=== PATIENT | female | born 1950 | race Caucasian/White ===

== ENCOUNTER 2018-12-13 14:44 | Inpatient (IN) ==
[2018-12-13] MEDS ORDERED: NS 1,000 ML IV ONE ×2 (15:02→17:00)
--- NOTE | 2018-12-13 15:28 | Diag Imaging Result Doc PS360 ---
CT HEAD W/O CONTRAST - 12/13/2018 INDICATION: FALL COMPARISON: 03/15/2014 FINDINGS: The ventricles and sulci are normal in size and contour. There is stable moderately advanced cerebral periventricular white matter chronic microvascular disease. No intracranial mass or hemorrhage. The skull is intact. The sinuses, mastoids, and middle ears are clear. IMPRESSION: No acute disease or change from prior. This exam was performed using automated exposure control, adjustment of mA or kV according to patient size, and/or use of iterative reconstruction technique Electronically signed by Adolfo Morin 12/13/2018 3:26 PM
[2018-12-13 15:57] LABS: BILIRUBIN URINE NEGATIVE (NEGATIVE); BLOOD URINE NEGATIVE (NEGATIVE); CLARITY CLEAR (CLEAR); COLOR YELLOW; GLUCOSE URINE NEGATIVE (NEGATIVE); KETONE URINE NEGATIVE (NEGATIVE); LEUKOCYTES URINE TRACE (NEGATIVE); NITRITE URINE NEGATIVE (NEGATIVE); PH URINE 6.5; PROTEIN URINE 1+(30 mg/dL) mg/dL (NEGATIVE); UROBILINOGEN URINE NORMAL
--- NOTE | 2018-12-13 15:59 | Diag Imaging Result Doc PS360 ---
EXAM: CHEST-1 VIEW - 12/13/2018 HISTORY: SOB TECHNIQUE: Portable chest COMPARISON: 07/14/2017 FINDINGS: Heart size is normal. There is mild tortuosity of the thoracic aorta. Inspiration is mildly shallow. There is mild prominence of central vascular markings. There is no focal consolidation, pleural effusion, or pneumothorax identified. IMPRESSION: Mildly shallow inspiration. Mild prominence of central vascular markings. No discrete pneumonia. No pneumothorax. Electronically signed by Schuyler Oliver 12/13/2018 3:56 PM
[2018-12-13 16:08] LABS: URINE BACTERIA NEGATIVE /HFP; URINE EPITHELIAL CELLS <10 /HPF (<10); URINE RBC <10 /HPF (<10); URINE SOURCE CLEAN CATCH; URINE WBC <10 /HPF (<10)
[2018-12-13 16:13] LABS: ESTIMATED GFR > 60
[2018-12-13 16:18] LABS: AGAP 10; ALBUMIN 3.8 g/dL (3.5-5.0); ALKALINE PHOSPHATASE 221 U/L (32-104); BUN 21 mg/dL (8-22); CALCIUM 8.6 mg/dL (8.8-10.2); CHLORIDE 88 mmol/L (98-107); CK PROFILE 44 U/L (24-173); COSMO 274; CREATININE 0.9 mg/dL (0.5-0.9); GLUCOSE 117 mg/dL (70-104); GOT 14 U/L (10-30); GPT 7 U/L (10-36); POTASSIUM 4.5 mmol/L (3.5-5.1); SODIUM 135 mmol/L (136-145); TCO2 37 mmol/L (25-35); TOTAL PROTEIN 6.8 g/dL (6.3-8.3)
[2018-12-13 16:25] LABS: BASO# 0.03 X1000 (0.0-0.2); BASO% 0.2 % (0.0-0.8); EOS% 0.8 % (0.0-10.0); HEMATOCRIT 42.6 % (37.0-47.0); HEMOGLOBIN 12.3 g/dL (12.0-16.0); IMM GRAN# 0.09 X1000 (0.0-0.04); IMM GRAN% 0.7 % (0.0-0.5); LYMPH# 1.13 X1000 (1.2-3.4); LYMPH% 9.1 % (20.5-51.1); MCH 24.4 PG (27-31); MCHC 28.9 g/dL (33-37); MCV 84.4 FL (81-99); MONO# 0.88 X1000 (0.11-0.59); MONO% 7.1 % (1.7-9.3); MPV 9.3 FL (7.4-10.4); NEUT# 10.21 X1000 (1.4-6.5); NEUT% 82.1 % (42.2-75.2); PLT 387 X1000 (130-400); RBC 5.05 XMIL (4.2-5.4); WBC 12.44 X1000 (4.8-10.8)
--- NOTE | 2018-12-13 16:43 | PROVIDER DOCUMENTATION ---
This chart was entered by Maia Ivory Scribe, acting as scribe for Oziel Cid MD. HPI-Head Injury - General Chief Complaint: Fall Stated Complaint: fall, slurred speech Time Seen by Provider: 12/13/18 14:47 Source: patient, family (son), EMS ([facility]) Unable to obtain history due to:: altered Allergies/Adverse Reactions: Patient Allergies Allergy/AdvReac Type Severity Reaction Status Date / Time acetaminophen AdvReac Unknown Verified 03/15/14 19:33 [From Tylenol-Codeine #3] codeine AdvReac Unknown Verified 03/15/14 19:33 codeine phosphate * AdvReac Unknown Verified 03/15/14 19:33 [From Tylenol-Codeine #3] dimethicone * AdvReac Unknown Verified 03/15/14 19:33 [From A & D Emollient] glycerin * AdvReac Unknown Verified 03/15/14 19:33 [From A & D Emollient] Penicillins AdvReac Unknown Verified 03/15/14 19:33 stearyl alcohol * AdvReac Unknown Verified 03/15/14 19:33 [From A & D Emollient] Sulfa (Sulfonamide AdvReac Unknown Verified 03/15/14 19:33 Antibiotics) Home Medications: Home Medication List Medication Instructions Recorded Confirmed Last Taken Type Aspirin [Aspirin EC] 81 mg PO DAILY #30 tablet. 03/15/14 Unknown Rx Atenolol 25 mg PO DAILY 03/15/14 03/15/14 03/15/14 History Atorvastatin Calcium [Lipitor] 10 mg PO DAILY 03/15/14 03/15/14 03/14/14 History Fluoxetine [Prozac] 10 mg PO DAILY 03/15/14 03/15/14 03/15/14 History LISINOpril [Prinivil] 5 mg PO DAILY 03/15/14 03/15/14 03/15/14 History Lisinopril 10 mg PO DAILY #30 tablet 03/15/14 Unknown Rx Lorazepam [Ativan] 0.5 mg PO QHS 03/15/14 03/15/14 03/14/14 History - History of Present Illness-Head Injury Nature of Presenting Problem: 68 yowf presents to the ed via ems with c/o frequent falls AMS and slurred spee ch since monday. son sts pt has fallen several times and has not been at baseline since first fall on monday. he sts today pt became worse with slurred speech worsening confusion and lethargic. pt on exam can be woke by voice but is lethargic and quickly goes back to sleep. pt has no obvious injury on exam Head Injury Location: reports: other (sts has fallen and hit head but no wound is seen) Quality of Pain: reports: none Severity: reports: moderate Onset/Duration: reports: 4 days ago Timing: reports: still present, intermittent, getting worse Method of Injury: reports: fell Any recent trauma/injury?: reports: minor, to head Loss of Consciousness: unsure Modifying Factors: improves with: nothing Injury Associated Symptoms: reports: trouble walking. denies: back/neck pain, chest pain, headaches, nausea, shortness of breath, snap/crack/pop sensation Locality of Occurance: Home Similar Symptoms Previously?: Yes Recently seen or treated by another doctor?: No Review of Systems - Adult - REVIEW OF SYSTEMS - ADULT Constitutional: denies: chills, fever Eyes: reports: no symptoms reported Ears, Nose, Mouth & Throat: reports: no symptoms reported Cardiovascular: denies: chest pain, palpitations, syncope Respiratory: denies: cough, shortness of breath, wheezing Gastrointestinal: denies: abdominal pain, diarrhea, nausea, vomiting Genitourinary: reports: no symptoms reported Musculoskeletal: denies: back pain, neck pain Integumentary: reports: no symptoms reported Neurological: reports: see HPI, loss of balance, slurred speech, other (frequent falls and ams). denies: ataxia, headache/migraines, seizure Psychiatric: reports: no symptoms reported Endocrine: reports: no symptoms reported Hematologic/Lymphatic: reports: no symptoms reported Allergic/Immunologic: reports: no symptoms reported All Other Systems: Reviewed and Negative Past History - Adult - PAST MEDICAL HISTORY-ADULT Review of Records: reports: Nursing Assessment Review, Medications Reviewed Major Childhood Illnesses: reports: denies history Cardiovascular: reports: HTN, hyperlipidemia Respiratory: reports: denies history Gastrointestinal: reports: denies history Obstetrical/Gynecological: reports: denies history Genitourinary: reports: denies history Musculoskeletal: reports: denies history Hand Dominance: Right Handed 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 denies: CVA Psychiatric: reports: depression Endocrine/Immune: reports: denies history Other Conditions: reports: denies history - PRIOR SURGERIES/PROCEDURES Surgical/Procedure History: reports: cholecystectomy, BTL - IMMUNIZATION STATUS Childhood Immunizations: See Nurse Assessment Flu Vaccine: See Nurse Assessment - FAMILY HISTORY Family History: reviewed, not pertinent - SOCIAL HISTORY Smoking: quit greater than 1 year Substance Use: denies Alcohol Use Frequency: never Living Situation: family (son lives with pt) Physical Exam- Neurological - Physical Exam-Neuro Initial Vital Signs Reviewed: Yes General Appearance: obese, lethargic, slow to respond Eye Exam: bilateral eye: normal inspection, PERRL, EOMI HENMT: moist mucous membranes, normal ENT inspection Head Injury: no evidence of injury (son sts pt has fell monday and again today putting a whole in the wall with fall) Neck: supple, normal inspection Respiratory: lungs clear, normal breath sounds Cardiovascular: normal peripheral pulses, regular rate, rhythm Abdominal Exam: normal bowel sounds, soft Lymphatic: no adenopathy 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 negative: normal speech, facial droop, facial weakness Neurologic: negative: aphasia, facial droop Integumentary: normal color, normal turgor, warm/dry - Glascow Coma Scale Best Eye Response: (3) open to voice Best Verbal Response: (1) no verbal response Best Motor Response: (6) obeys commands Total Glascow Score: 10 Progress - PLAN OF CARE/RESULTS Progress/Plan/Lab Results: Vital Signs - 8 hr 12/13/18 15:05 12/13/18 15:12 12/13/18 15:35 Temperature 98.2 F Pulse Rate 89 83 Respiratory Rate 20 18 Blood Pressure 177/103 178/96 O2 Sat by Pulse Oximetry 100 98 12/13/18 15:54 Temperature Pulse Rate 82 Respiratory Rate 18 Blood Pressure 141/84 O2 Sat by Pulse Oximetry 95 Laboratory Results - last 24 hr 12/13/18 12/13/18 12/13/18 15:24 15:25 15:25 WBC 12.44 H RBC 5.05 Hgb 12.3 Hct 42.6 MCV 84.4 MCH 24.4 L MCHC 28.9 L RDW Std Deviation 16.0 H Plt Count 387 MPV 9.3 Immature Gran % (Auto) 0.7 H Neut % (Auto) 82.1 H Lymph % (Auto) 9.1 L Harney % (Auto) 7.1 Eos % (Auto) 0.8 Baso % (Auto) 0.2 Immature Gran # (Auto) 0.09 H Neut # (Auto) 10.21 H Lymph # (Auto) 1.13 L Harney # (Auto) 0.88 H Eos # (Auto) 0.10 Baso # (Auto) 0.03 Sodium 135 L Potassium 4.5 Chloride 88 L Carbon Dioxide 37 H Anion Gap 10 BUN 21 Creatinine 0.9 Estimated GFR/1.73 m2 > 60 BUN/Creatinine Ratio 23 Glucose 117 H Calculated Osmolality 274 Calcium 8.6 L Total Bilirubin 0.70 AST 14 ALT 7 L Alkaline Phosphatase 221 H Creatine Kinase 44 Troponin T [id number] Pept Total Protein 6.8 Albumin 3.8 Globulin 3.0 Albumin/Globulin Ratio 1.0 Urine Source CLEAN CATCH Urine Color YELLOW Urine Clarity CLEAR Urine pH 6.5 Ur Specific [place] 1.020 Urine Protein 1+(30 mg/dL) A Urine Ketones NEGATIVE Urine Blood NEGATIVE Urine Nitrite NEGATIVE Urine Bilirubin NEGATIVE Urine Urobilinogen NORMAL Urine Microscopic RBC <10 Urine WBC TRACE A Urine Microscopic WBC <10 Ur Epithelial Cells <10 Urine Bacteria NEGATIVE Urine Glucose NEGATIVE 12/13/18 12/13/18 15:25 15:25 WBC RBC Hgb Hct MCV MCH MCHC RDW Std Deviation Plt Count MPV Immature Gran % (Auto) Neut % (Auto) Lymph % (Auto) Harney % (Auto) Eos % (Auto) Baso % (Auto) Immature Gran # (Auto) Neut # (Auto) Lymph # (Auto) Harney # (Auto) Eos # (Auto) Baso # (Auto) Sodium Potassium Chloride Carbon Dioxide Anion Gap BUN Creatinine Estimated GFR/1.73 m2 BUN/Creatinine Ratio Glucose Calculated Osmolality Calcium Total Bilirubin AST ALT Alkaline Phosphatase Creatine Kinase Troponin T < 0.010 [id number]-[id number] Pept 8530 H Total Protein Albumin Globulin Albumin/Globulin Ratio Urine Source Urine Color Urine Clarity Urine pH Ur Specific [place] Urine Protein Urine Ketones Urine Blood Urine Nitrite Urine Bilirubin Urine Urobilinogen Urine Microscopic RBC Urine WBC Urine Microscopic WBC Ur Epithelial Cells Urine Bacteria Urine Glucose Orders Category Date Time Status Cardiac Monitoring DIRECTED Care 12/13/18 15:03 Active Oxygen Therapy- ED Nursing DIRECTED Care 12/13/18 15:03 Active Saline Loc NOW Care 12/13/18 15:03 Active CHEST-1 VIEW [RAD] Stat Exams 12/13/18 15:[address] HEAD W/O CONTRAST [CT] Stat Exams 12/13/18 14:38 Completed CBC WITH ELECTRONIC DIFF [HEME] Stat Lab 12/13/18 15:25 Completed CK PROFILE [SP CHEM] Stat Lab 12/13/18 15:25 Completed COMPREHENSIVE METABOLIC PANEL [CHEM] Stat Lab 12/13/18 15:25 Completed PRO B-NATRIURETIC PEPTIDE Stat Lab 12/13/18 15:25 Completed PROTIME WITH INR [COAG] Stat Lab 12/13/18 15:25 Received PTT [COAG] Stat Lab 12/13/18 15:25 Received TROPONIN T Stat Lab 12/13/18 15:[address] W/POSS RFLX CULT [URINALYSIS] Stat Lab 12/13/18 15:24 Completed URINE CULTURE [RM] Routine Lab 12/13/18 16:08 Ordered 0.9% Sodium Chloride Inj [Ns] 1,000 ml Med 12/13/18 15:02 Active IV 100 mls/hr CP/SOB/Palp >45 yrs of Age Stat Oth 12/13/18 15:02 Ordered EKG [EKG] Stat Ther 12/13/18 15:03 Ordered Result Diagrams: 12/13/18 15:25 12/13/18 15:25 - REASSESSMENT Reassessment #1 Time Reassessed: 16:24 (son is at bedside) Status: improving Reassessment #2 Time Reassessed: 16:43 Status: unchanged (REMAINS DROWSY BUT AROUSABLE. NO FOCAL DEFICITS. DISCUSSED WITH HOSPITALIST WILL ADMIT) - EKG 1 Time of EKG reading by physician:: 16:20 EKG Read and Signed by:: Oziel Cid EKG Interpretation (*Must complete 3 of following elements*): Normal Rate: 76 Rhythm: nsr [place]: normal QRS: other (right atrial enlargement) AK Interval: normal ST Wave: normal - XRAY 1 XRAY: Bilateral XRAY Study: Chest Impression: See EMR Report (EXAM: CHEST-1 VIEW - 12/13/2018 HISTORY: SOB TECHNIQUE: Portable chest COMPARISON: 07/14/2017 FINDINGS: Heart size is normal. There is mild tortuosity of the thoracic aorta. Inspiration is mildly shallow. There is mild prominence of central vascular markings. There is no focal consolidation, pleural effusion, or pneumothorax identified. IMPRESSION: Mildly shallow inspiration. Mild prominence of central vascular markings. No discrete pneumonia. No pneumothorax. Electronically signed by Schuyler Oliver 12/13/2018 3:56 PM 12/13/18 1556 Interpreting Physician: Schuyler Oliver MD Dictated Date/Time: 12/13/18 1554 cc: Oziel Cid MD; None,PCP) - CT/MRI 1 CT Study: Head Impression: See EMR Report (CT HEAD W/O CONTRAST - 12/13/2018 INDICATION: FALL COMPARISON: 03/15/2014 FINDINGS: The ventricles and sulci are normal in size and contour. There is stable moderately advanced cerebral periventricular white matter chronic microvascular disease. No intracranial mass or hemorrhage. The skull is intact. The sinuses, mastoids, and middle ears are clear. IMPRESSION: No acute disease or change from prior. This exam was performed using automated exposure control, adjustment of mA or kV according to patient size, and/or use of iterative reconstruction technique Electronically signed by Adolfo Morin 12/13/2018 3:26 PM 12/13/18 1526 Interpreting Physician: Adolfo Morin MD Dictated Date/Time: 12/13/18 1525 cc: Oziel Cid MD;) - CONSULTS/PCP/HOSPITALIST Notification #1 *Consult/PCP/Hospitalist*: hospiatlist Time Discussed: 16:40 Consult Disposition: Admit Departure - Departure Date of Disposition Decision: 12/13/18 Time of Disposition Decision: 16:42 DIAGNOSIS: Altered mental status, Closed head injury Disposition: ADMITTED INPATIENT 09 Certified Medical Emergency: Emergent Condition: Fair Referrals and Follow-Ups: None,PCP [Primary Care Provider] - - Critical Care Note This patient required my direct & personal management of CC.: No Attestation - Physician/ SADIA Attestation Patient care was provided by Advanced Practice Provider:: No The physician spent face to face time with patient:: Yes Advanced Practice Provider documentation review:: Supervising physician onsite and consulted in the evaluation and care of this patient. The physician did have a face to face encounter with the patient. This chart was documented by the indicated scribe, (Maia Ivory Scribe) and accurately reflects the services I performed and decisions made by me, Oziel Cid MD, as attested by the provider's signature.
[2018-12-13 16:53] LABS: INR 0.9; PROTIME 12.6 Seconds (11.0-16.0)
[2018-12-13 16:54] LABS: PTT 37.4 Seconds (22.3-41.8)
--- NOTE | 2018-12-13 17:52 | EKG Report ---
Test Performed on : 12/13/2018 4:20:40 PM Test Reason : FALL WEAK Blood Pressure : / mmHG Vent. Rate : 076 BPM Atrial Rate : 076 BPM P-R Int : 164 ms QRS Dur : 068 ms QT Int : 372 ms P-R-T Axes : 072 026 041 degrees QTc Int : 418 ms Normal sinus rhythm. Right atrial enlargement Borderline ECG When compared with ECG of 15-MAR-2014 19:30, No significant change was found Unconfirmed Result
[2018-12-13] MEDS ORDERED: ZOFRAN IV PRN (18:28)
[2018-12-13] MEDS: LOVENOX SUBQ SCH (19:35)
--- NOTE | 2018-12-13 19:36 | HISTORY AND PHYSICAL ---
PRIMARY CARE PHYSICIAN: A walk-in clinic in [place], [place]. CHIEF COMPLAINT: Fall, slurred speech, altered mental status that began on Monday and has progressively worsened. HISTORY OF PRESENTING ILLNESS: This is a 68-year-old female who presents to [facility] ER via EMS. Son is present at the bedside. Patient is lethargic, responding only momentarily to a sternal rub with a grimace, but otherwise nonverbal. Son states that his mom had a fall on Monday and he noticed some slurred speech and confusion, and that she has not been at her baseline since the fall on Monday. States today she became worse and had another fall, and had more slurred speech and worsening confusion and lethargy. Her workup in the emergency room showed a head CT with no acute disease or change from prior. Laboratory data showed a white blood cell count of 12.44. A proBNP was 8530. She will be admitted to the medical unit for further evaluation and treatment. PAST MEDICAL HISTORY: 1. Hypertension. 2. Hyperlipidemia. 3. Luna's palsy. 4. Depression. PAST SURGICAL HISTORY: 1. Cholecystectomy. 2. Bilateral tubal ligation. ALLERGIES: Acetaminophen, codeine, A and D emollient, penicillin and sulfa drugs. HOME MEDICATIONS: Will need to obtain a current list, reconcile, review, and restart as appropriate. Place an order for Nursing to update and confirm home medications. FAMILY HISTORY: Reviewed and noncontributory. SOCIAL HISTORY: She currently lives with her son, is a former smoker, and denies any alcohol or illicit drug use, per the son. LABORATORY DATA: White blood cell count of 12.44, hemoglobin 12.3, hematocrit 42.6, platelets 387,000. Sodium 135, potassium 4.5, chloride 88, CO2 37, BUN of 21, creatinine 0.9, glucose 117, AST of 14, ALT 7, alkaline phosphatase 221. Cardiac enzyme was negative. ProBNP of 8530. Urinalysis was negative. CT of the head showed no acute disease or change from prior. Chest x- ray showed mildly shallow inspiration, no discrete pneumonia, no pneumothorax. REVIEW OF SYSTEMS: Unable to obtain from patient due to her lethargy. PHYSICAL EXAMINATION: VITAL SIGNS: On arrival, she had a temperature of 98.2 degrees, a pulse of 89, respirations 20, blood pressure 177/103. Currently, her blood pressure is down to 137/84. GENERAL: This is a 68-year-old female who is lying in the bed, only responding minimally with a facial grimace to a sternal rub, nonverbal. Did not open eyes. HEENT: Appears normocephalic and atraumatic. Normal ENT inspection. Oropharynx and nares are clear. Eyes: Pupils are equal, round, and reactive to light and accommodation. Extraocular movements are intact. NECK: Normal inspection. Normal range of motion. LUNGS: Clear to auscultation bilaterally with equal lung expansion and chest wall movement. HEART: Regular rate and rhythm. No murmurs, rubs, or gallops. ABDOMEN: Soft, nontender, nondistended. Bowel sounds are present x4 quadrants. MUSCULOSKELETAL: Unable to assess at this time. NEUROLOGICAL: Unable to complete a neurological exam at this time. ASSESSMENT: 1. Altered mental status. 2. Multiple falls. 3. Transient ischemic attack versus cerebrovascular accident. 4. Hypertension. PLAN: 1. She will be admitted to the medical unit at [facility], placed on telemetry. 2. We will hold her n.p.o. at this time until she is more alert and awake. 3. Place her on normal saline at 50 mL an hour. 4. Lovenox 40 mg subcutaneously every 24 hours for deep venous thrombosis prophylaxis. 5. Urine culture is pending. 6. Will check an MRI of the brain with and without contrast in the morning. 7. Have Nursing to update and confirm home medications. 8. Recheck a CBC and CMP in the morning. 9. Further orders after seen by Attending. Dictated by TAHIR Fowler for Ignacio Blackwell MD Addendum: Patient seen and examined by myself. Agree with TAHIR note. It reflects my assessment and plan. Patient is admitted to hospital for metabolic encephalopathy. Patient is difficult to arise. For possible TIA vs stroke will order MRI of brain. Will monitor patient closely. cc: TAHIR Fowler MD [facility]
[2018-12-13 19:55] LABS: UR AMPHETAMINES QUAL NONE DETECTED (NONE DETECT); UR BARBITUATES QUAL NONE DETECTED (NONE DETECT); UR BENZODIAZEPIN QUAL PRESUMPTIVE POSITIVE (NONE DETECT); UR CANNABINOIDS QUAL NONE DETECTED (NONE DETECT); UR COCAINE QUAL NONE DETECTED (NONE DETECT); UR METHADONE QUAL NONE DETECTED (NONE DETECT); UR METHAMPHETAMINE QUAL NONE DETECTED (NONE DETECT); UR OPIATES QUAL NONE DETECTED (NONE DETECT); UR OXYCODONE QUAL NONE DETECTED (NONE DETECT); UR PCP QUAL NONE DETECTED (NONE DETECT); UR PROPOXYPHENE QUAL NONE DETECTED (NONE DETECT); UR TCA QUAL NONE DETECTED (NONE DETECT)
[2018-12-14] MEDS: NS 1,000 ML IV SCH ×2 (03:19→18:04)
[2018-12-14 07:17] LABS: EOS% 0.6 % (0.0-10.0); HEMATOCRIT 37.8 % (37.0-47.0); HEMOGLOBIN 10.8 g/dL (12.0-16.0); LYMPH% 10.2 % (20.5-51.1); MCH 24.6 PG (27-31); MCHC 28.6 g/dL (33-37); MCV 86.1 FL (81-99); MONO% 8.7 % (1.7-9.3); MPV 9.2 FL (7.4-10.4); NEUT% 79.8 % (42.2-75.2); PLT 337 X1000 (130-400); RBC 4.39 XMIL (4.2-5.4); RDW 15.7 % (11.5-14.5); WBC 12.93 X1000 (4.8-10.8)
[2018-12-14 07:18] LABS: BASO# 0.02 X1000 (0.0-0.2); BASO% 0.2 % (0.0-0.8); EOS# 0.08 X1000 (0.0-0.7); IMM GRAN# 0.07 X1000 (0.0-0.04); IMM GRAN% 0.5 % (0.0-0.5); LYMPH# 1.32 X1000 (1.2-3.4); MONO# 1.12 X1000 (0.11-0.59); NEUT# 10.32 X1000 (1.4-6.5)
[2018-12-14 07:29] LABS: AGAP 7; BUN 21 mg/dL (8-22); CHLORIDE 92 mmol/L (98-107); COSMO 274; CREATININE 0.8 mg/dL (0.5-0.9); ESTIMATED GFR > 60; GLUCOSE 82 mg/dL (70-104); POTASSIUM 4.4 mmol/L (3.5-5.1); SODIUM 136 mmol/L (136-145); TCO2 37 mmol/L (25-35)
[2018-12-14 07:30] LABS: ALBUMIN 3.1 g/dL (3.5-5.0); ALKALINE PHOSPHATASE 187 U/L (32-104); GOT 12 U/L (10-30); GPT 6 U/L (10-36); TOTAL PROTEIN 5.3 g/dL (6.3-8.3)
--- NOTE | 2018-12-14 09:33 | Diag Imaging Result Doc PS360 ---
MRI BRAIN W/WO CONTRAST - 12/14/2018 INDICATION: Fall,AMS,Poss CVA COMPARISON: None FINDINGS: There is a tiny probably artifactual hyperintensity at the posterior midline of the cerebral hemispheres on the diffusion images. No convincing large area of diffusion abnormality. There is extensive hyperintensity on the T2 and FLAIR images all throughout the cerebral white matter, including the left cerebral peduncle and the central anuradha. This is compatible with chronic microvascular disease. No evidence of intracranial mass or hemorrhage. There is no abnormal contrast enhancement. Midline structures including optic chiasm and pituitary are normal. IMPRESSION: Advanced chronic appearing ischemic changes of the brain. No acute abnormality. Electronically signed by Adolfo Morin 12/14/2018 9:30 AM
--- NOTE | 2018-12-14 09:59 | Diag Imaging Result Doc PS360 ---
CT ANGIOGRAM HEAD/NECK - 12/14/2018 INDICATION: ams, recurrent falls, TECHNIQUE: Axial CT images were obtained after administering intravenous contrast. Three-dimensional angiographic images were generated. COMPARISON: Head CT 12/13/2018 FINDINGS: There is moderate vascular calcification of the aortic arch and the origins of the great vessels. No significant stenosis here. Both common carotid arteries are patent. There is moderate vascular calcification of both carotid bulbs. No significant stenosis. The internal carotid arteries are patent bilaterally. The vertebral arteries are patent and codominant. The basilar artery is patent and normal in caliber. Normal posterior cerebral arteries. The right intracranial internal carotid artery demonstrates significant calcified plaque formation mainly in the cavernous portion. There is severe stenosis here of about 80% narrowing. Normal-appearing right middle and anterior cerebral artery. The left internal carotid artery demonstrates significant calcified plaque buildup throughout the cavernous portion as well. There is lesser stenosis is still significant, probably about 50-60% narrowing. Normal-appearing anterior and middle cerebral arteries. IMPRESSION: Significant cerebrovascular disease mainly of the internal carotid arteries, right greater than left. This exam was performed using automated exposure control, adjustment of mA or kV according to patient size, and/or use of iterative reconstruction technique Electronically signed by Adolfo Morin 12/14/2018 9:57 AM
[2018-12-14] MEDS: LOVENOX SUBQ SCH (18:05)
[2018-12-15] MEDS ORDERED: VITAMIN D PO SCH (09:00)
[2018-12-15] MEDS: ASPIRIN EC PO SCH (10:27)
[2018-12-15] MEDS: PRINIVIL PO SCH (10:28)
[2018-12-15] MEDS: HYDROCHLOROTHIAZIDE PO SCH (10:28)
[2018-12-15] MEDS: PLAVIX PO SCH (10:28)
[2018-12-15] MEDS: NS 1,000 ML IV SCH (10:29)
[2018-12-15] MEDS: ZOLOFT PO SCH (10:29)
--- NOTE | 2018-12-15 14:27 | PROGRESS NOTE ---
DATE: 12/15/2018 SUBJECTIVE: Patient is a little more awake today, is still somehow sleepy. No headache. No nausea or vomiting. No other complaints. OBJECTIVE: Vital Signs: Temperature 98.9 degrees, heart rate 105, respiratory rate 18, blood pressure 130/81, O2 saturation 98% on 2 L. General: This is a chronically ill-appearing and looking older than her stated age, lying in bed, in no acute distress, 64-year-old female. HEENT: Head is normocephalic, atraumatic. Neck: No JVD noted. No carotid bruits. No lymphadenopathy. No thyromegaly. Cardiovascular: S1, S2 heard. No murmurs, gallops, or rubs. Regular rate and rhythm. Respiratory: Clear bilaterally to auscultation. No work of breathing or using accessory muscles. Abdomen: Soft, nontender to palpation. Bowel sounds present. No organomegaly. Extremities: No clubbing, cyanosis, or edema. Peripheral pulses present in both legs. Neurological: Patient is a little bit sleepy but answers questions appropriately. LABORATORY DATA: Reviewed. ASSESSMENT AND PLAN: 1. Metabolic encephalopathy, resolved. That could be most likely related to medication what she was taking for insomnia. This patient is a little bit more alert. We will continue to monitor. 2. Multiple falls. I think this patient has become very weak. Physical Therapy, Occupational Therapy has been consulted but she needed to be sent to rehab facility. Family and patient agreed with the plan. 3. Hypertension. Blood pressure is under control. Continue with the same management. 4. Peripheral vascular disease. There is some obstruction of the pulmonary artery, in the internal carotid arteries. We will continue to monitor. 5. Disposition. We will monitor this patient closely and plan is to send her to a rehab facility. cc: Ignacio Blackwell MD MTDD
[2018-12-15] MEDS: LOVENOX SUBQ SCH (18:09)
[2018-12-15] MEDS: LIPITOR PO SCH (21:46)
[2018-12-15] MEDS: TOPROL XL PO SCH (21:47)
[2018-12-16] MEDS: NS 1,000 ML IV SCH (06:55)
[2018-12-16] MEDS: ASPIRIN EC PO SCH (08:53)
[2018-12-16] MEDS: HYDROCHLOROTHIAZIDE PO SCH (08:53)
[2018-12-16] MEDS: ZOLOFT PO SCH (08:54)
[2018-12-16] MEDS: PLAVIX PO SCH (08:54)
[2018-12-16] MEDS: PRINIVIL PO SCH (08:54)
--- NOTE | 2018-12-16 11:55 | PROGRESS NOTE ---
DATE: 12/16/2018 SUBJECTIVE: The patient is definitely more awake and alert. She denies any headache, nausea/vomiting. No other complaints noted. OBJECTIVE: Vital Signs: Temperature 98.4 degrees, heart rate 91, respiratory rate 20, blood pressure 157/66, O2 saturation 100% 2 L nasal cannula. General Examination: This is a chronically ill-appearing and obese 68-year-old female, lying in bed in no acute distress. Cardiovascular: S1, S2 heard. No murmurs, gallops, or rubs. Regular rate and rhythm. Respiratory: Clear bilaterally to auscultation. No work of breathing or using accessory muscles. Abdomen is soft, nontender to palpation. Bowel sounds present. No organomegaly. Extremities: No clubbing, cyanosis, or edema. Peripheral pulses present in both legs. Neurological: Patient is more alert and awake. Answered questions appropriately. Moves 4 extremities spontaneously. LABORATORY DATA: Reviewed. ASSESSMENT AND PLAN: 1. Metabolic encephalopathy. That is the reason why this patient was admitted to the hospital. That could be most likely related to medication for insomnia that she was taking. In any case, we have stopped everything, and she is definitely much more alert. 2. Multiple falls. The patient has become very weak. That is what also the family reports. Physical Therapy and Occupational Therapy have been consulted. Our plan is to send her to a rehabilitation facility. line worker has been consulted. 3. Hypertension. Blood pressure is under control. We will continue with same management. 4. Peripheral vascular disease. There is some obstruction of the carotid artery noted in the CTA of head and neck. In any case, this is something we may need to take care of as an outpatient. DISPOSITION: At this point, patient is medically stable and awaiting a rehabilitation bed. cc: Ignacio Blackwell MD
[2018-12-16] MEDS: LOVENOX SUBQ SCH (18:21)
[2018-12-16] MEDS: LIPITOR PO SCH (20:25)
[2018-12-16] MEDS: TOPROL XL PO SCH (20:25)
[2018-12-17 07:36] LABS: BASO# 0.02 X1000 (0.0-0.2); BASO% 0.2 % (0.0-0.8); EOS# 0.17 X1000 (0.0-0.7); EOS% 2.1 % (0.0-10.0); HEMOGLOBIN 11.2 g/dL (12.0-16.0); IMM GRAN# 0.01 X1000 (0.0-0.04); IMM GRAN% 0.1 % (0.0-0.5); LYMPH# 0.76 X1000 (1.2-3.4); LYMPH% 9.4 % (20.5-51.1); MCH 24.2 PG (27-31); MCHC 28.7 g/dL (33-37); MCV 84.2 FL (81-99); MONO# 0.76 X1000 (0.11-0.59); MONO% 9.4 % (1.7-9.3); MPV 9.3 FL (7.4-10.4); NEUT% 78.8 % (42.2-75.2); PLT 277 X1000 (130-400); RBC 4.63 XMIL (4.2-5.4); RDW 15.1 % (11.5-14.5); WBC 8.12 X1000 (4.8-10.8)
[2018-12-17 07:49] LABS: AGAP 10; BUN 12 mg/dL (8-22); CALCIUM 8.8 mg/dL (8.8-10.2); CHLORIDE 92 mmol/L (98-107); COSMO 281; CREATININE 0.6 mg/dL (0.5-0.9); ESTIMATED GFR > 60; GLUCOSE 95 mg/dL (70-104); POTASSIUM 3.7 mmol/L (3.5-5.1); SODIUM 141 mmol/L (136-145); TCO2 40 mmol/L (25-35)
[2018-12-17] MEDS: ASPIRIN EC PO SCH (10:26)
[2018-12-17] MEDS: HYDROCHLOROTHIAZIDE PO SCH (10:26)
[2018-12-17] MEDS: PLAVIX PO SCH (10:26)
[2018-12-17] MEDS: PRINIVIL PO SCH (10:27)
[2018-12-17] MEDS: ZOLOFT PO SCH (10:27)
[2018-12-17 15:59] VITALS: BP 168/64
--- NOTE | 2018-12-17 16:07 | DISCHARGE SUMMARY ---
ADMISSION DATE: 12/13/2018 DISCHARGE DATE: 12/17/2018 CONSULTATIONS: None. PRIMARY PROCEDURES: 1. Head CT: No acute disease or change from prior. 2. Head and neck CT: Significant cerebrovascular disease mainly in the internal carotid arteries, right greater than left. There is a severe stenosis about 80% narrowing on the right, and the left internal carotid artery demonstrates significant calcified plaque buildup throughout the cavernous portion. The lesser stenosis is still significant, probably around 50% to 60%narrowing. Normal-appearing anterior and middle cerebral arteries. 3. Brain MRI: Advanced chronic-appearing ischemic changes of the brain. No acute abnormality. DISCHARGE DIAGNOSES: 1. Metabolic encephalopathy, most likely related to medications for insomnia. All of these medications have been stopped, and the patient is much more alert. 2. Multiple falls. The patient is very weak. She has been working with physical therapy and occupational therapy. The patient will be sent to rehabilitation at [facility]. 3. Hypertension. Blood pressure controlled. 4. Peripheral vascular disease. The patient does have carotid artery stenosis, right greater than left. According to the head and neck CT, it is 80% on the right and 50% to 60% narrowing on the left. She will need to follow up with a general surgeon on an outpatient basis to discuss her options, and she will continue to take Plavix and aspirin. HOSPITAL COURSE: Briefly, Ms. Chatman is a 68-year-old female who carries a past medical history of hypertension, hyperlipidemia, Luna's palsy, and depression, who presented to [facility] ER via EMS. The patient initially was lethargic, responded only momentarily to a sternal rub with a grimace, but otherwise, she was nonverbal. The son stated that his mom had fallen on Monday, and they noticed some slurred speech and confusion. She continued to worsen and had another fall with more slurred speech and worsening confusion and lethargy. Her workup in the ED with a head CT did not show any acute change from prior. Laboratory data showed a white count of and a proBNP of 8530. She was admitted for altered mental status, believed to be secondary to her insomnia medications that were held, as well as TIA versus CVA. Her head CT did not show anything acute; however, head and neck CT did show an 80% blockage in her right carotid as well as 50% to 60% stenosis on the left. She is currently on Plavix and aspirin and will need to follow up with General Surgery as an outpatient and monitoring. Since taking off her insomnia medicines, the patient is now more awake and alert. She has worked with physical therapy and occupational therapy and will be discharged to [facility] today. VITAL SIGNS: At time of her discharge temperature is 97.6 degrees, heart rate 82, respirations 18, blood pressure 138/54, O2 is 97% on 2 L nasal cannula. DISCHARGE DIET: Regular. DISCHARGE MEDICATIONS: 1. Lipitor 10 mg p.o. at bedtime. 2. Metoprolol 50 mg p.o. at bedtime. 3. Plavix 75 mg p.o. daily. 4. Lisinopril/hydrochlorothiazide 1 tablet p.o. daily. 5. Zoloft 100 mg p.o. daily. 6. Vitamin D2 of 50,000 units p.o. every 7 days. 7. Aspirin 81 mg p.o. daily. DISPOSITION: Ms. Chatman is being discharged to [facility] today. FOLLOW-UP: She will need to follow up with General Surgery to follow up on her carotids, as well as her primary care provider. DISCHARGE INSTRUCTIONS: She can return to the ED or call 911 for any worsening of symptoms. Dictated by TAHIR Nguyen for Rufino Manley MD cc: Rufino Manley MD
[2018-12-17] MEDS: LOVENOX SUBQ SCH (18:10)
--- NOTE | 2018-12-18 15:39 | DISCHARGE SUMMARY ---
ADMISSION DATE: 12/13/2018 DISCHARGE DATE: 12/17/2018 ADDENDUM: Patient seen and examined by myself. Full note dictated and discussed with nurse practitioner. Ms. Chatman unfortunately is still confused, although she is definitely more awake and alert than on admission. This morning she knew that she was in the hospital, but thought she was at [facility] which unfortunately closed over 5 years ago. She is unaware of the month or the year currently. PLAN: I will continue patient in the hospital until she can transfer to rehab which hopefully will be later today. Her blood pressures have improved. She still is unable to get out of bed on her own. Please see full note dictated by nurse practitioner. cc: Rufino Manley MD
== END 2018-12-17 19:10 | DRG 91 ==
LOC: P.ED 14:44 → P.MEDSURG 17:44 → SUATTDRO 17:44
PROVIDERS: ADMIT Family Medicine; ATTEND Family Medicine
CPT/HCPCS: 51701; 70450; 70496; 70498; 70553; 71010; 71045; 80048; 80053; 80101; 80104; 80301; 80305; 80307; 80324; 80345; 80346; 80353; 80358; 80361; 80365; 81001; 82140; 82550; 83880; 83992; 84484; 85025; 85610; 85730; 87088; 87324; 93005; 94761; 96360; 96361; 97162; 97530; 99285; A9270; A9579; G0431; G0434; G0477; G0479; G0480; J1650; J7030; P9612; Q9967